=== PATIENT | female | born 1960 | race Caucasian/White ===

== ENCOUNTER → 2017-04-23 | Outpatient (CLI) | payer BC, OTHER ==
--- NOTE | 2017-04-24 07:55 | XCELERA REPORT ---
[address] [address] Lower Extremity Venous Evaluation Name: MARAL NICOLE Age: 56 yrs Gender: Female : 1960 Patient Status: Outpatient Patient Location: Study Date: 04/23/2017 01:21 PM Procedure: Color flow and duplex imaging of the veins of the right lower extremity as well as the left Common Femoral vein. Reason For Study: RLE PAIN Ordering Physician: SKYE VELEZ Performed By: Amberly Grimes Right Sided Venous Evaluation Normal vessel filling wall to wall, compression and augmentation as well as Colour flow down to the infrageniculate veins. Left Sided Venous Evaluation The left common femoral vein is fully compressible. Spontaneous and phasic flow is present in the left common femoral vein. Interpretation Summary No duplex evidence of DVT or obstruction in the right lower extremity nor in the left Common Femoral vein. : SKYE VELEZ > Killian Breaux
== END ==
LOC: SP 13:19
PROVIDERS: ATTEND Physician Assistant
DX: M79.661 Pain in right lower leg (principal); R60.9 Edema, unspecified
CPT/HCPCS: 93971

== ENCOUNTER 2019-06-29 22:22 | Emergency (ER) | payer SELFPAY ==
[2019-06-29] MEDS ORDERED: ACETAMINOPHEN 325 MG TABLET PO ONE (23:31)
[2019-06-29 23:59] LABS: A TYPE INFLUENZA AG NEGATIVE (NEGATIVE); B INFLUENZA AG NEGATIVE (NEGATIVE)
--- NOTE | 2019-06-30 00:10 | RADIOLOGY REPORT (SQ) ---
EXAM: XR Chest, 1 View EXAM DATE/TIME: 06/29/2019 11:53 PM CLINICAL HISTORY: The patient is 59 years old and is Female; cough, fever TECHNIQUE: Frontal view of the chest. COMPARISON: No relevant prior studies available. FINDINGS: LUNGS: Unremarkable. No consolidation. PLEURAL SPACE: Unremarkable. No pneumothorax. HEART: No significant enlargement of the cardiac silhouette. MEDIASTINUM: Unremarkable. BONES/JOINTS: No acute osseous findings. IMPRESSION: No acute findings visualized in the chest.
[2019-06-30 07:06] VITALS: BP 116/72
--- NOTE | 2019-06-30 11:05 | ER Document Report ---
Entered by DANIEL CANTU SCRIBE 06/30/19 0647 Acting as scribe for:MICHAEL OSMAN DO ED General - General Chief Complaint: Flu Symptoms Stated Complaint: FEVER,CHILLS,BODY ACHE Time Seen by Provider: 06/30/19 06:00 Primary Care Provider: CELINA WASHINGTON MD [Primary Care Provider] - Follow up as needed Mode of Arrival: Ambulatory Information source: Patient Notes: This 59 year old female patient presents to the emergency department today with complaints of fevers for the last two nights with associated nasal congestion, headaches, cough, and body aches. Patient states that many of her coworkers have the flu and she thinks she may have it too. TRAVEL OUTSIDE OF THE [place] IN LAST 30 DAYS: No - Related Data Allergies/Adverse Reactions: latex Allergy (Verified 06/29/19 23:24) Past Medical History - General Information source: Patient - Social History Smoking Status: Never Smoker Frequency of alcohol use: None Drug Abuse: None Lives with: Family Family History: None Patient has suicidal ideation: No Patient has homicidal ideation: No - Medical History Medical History: Negative Past Surgical History: Reports: Hx Cholecystectomy, Hx Orthopedic Surgery - RT KNEE Review of Systems - Review of Systems Constitutional: See HPI, Fever EENT: See HPI, Ear pain, Nose congestion Cardiovascular: No symptoms reported Respiratory: See HPI, Cough Gastrointestinal: No symptoms reported Genitourinary: No symptoms reported Female Genitourinary: No symptoms reported Musculoskeletal: See HPI, Muscle pain Skin: No symptoms reported Hematologic/Lymphatic: No symptoms reported Neurological/Psychological: See HPI, Headaches -: Yes All other systems reviewed and negative Physical Exam - Vital signs Vitals: Temp Pulse Resp BP Pulse Ox 99.8 F 114 H 20 143/80 H 91 L 06/29/19 22:34 06/29/19 22:34 06/29/19 22:34 06/29/19 22:34 06/29/19 22:34 - Notes Notes: Physical Exam: General: Alert, appears well. HEENT: Normocephalic. Atraumatic. PERRL. Extraocular movements intact. Oropharynx clear. Right serous effusion. Maxillary sinus tenderness to percussion. Neck: Supple. Non-tender. Respiratory: No respiratory distress. Clear and equal breath sounds bilaterally. Cardiovascular: Regular rate and rhythm. Abdominal: Normal Inspection. Non-tender. No distension. Normal Bowel Sounds. Back: No gross abnormalities. Extremities: Moves all four extremities. Upper extremities: Normal inspection. Normal ROM. Lower extremities: Normal inspection. No edema. Normal ROM. Neurological: Normal cognition. AAOx4. Normal speech. Psychological: Normal affect. Normal Mood. Skin: Warm. Dry. Normal color. Course - Vital Signs Vital signs: Temp Pulse Resp BP Pulse Ox 98.1 F 79 18 116/72 99 06/30/19 07:05 06/30/19 07:05 06/30/19 07:05 06/30/19 07:05 06/30/19 07:05 Discharge - Discharge Clinical Impression: Acute sinusitis Qualifiers: Sinusitis location: maxillary Recurrence: non-recurrent Qualified Code(s): J01.00 - Acute maxillary sinusitis, unspecified Condition: Good Disposition: HOME, SELF-CARE Instructions: Acetaminophen, Fever ([facility]), Sinusitis ([facility]) Additional Instructions: Rest, plenty of fluids, tylenol or ibuprofen for fever, aches. Please return here for any problems or any concerns. Prescriptions: Amoxicillin/Potassium Clav [Amox-Clav 875-125 mg Tablet] 1 each PO BID #20 tablet Forms: Return to Work Referrals: CELINA WASHINGTON MD [Primary Care Provider] - Follow up as needed I personally performed the services described in the documentation, reviewed and edited the documentation which was dictated to the scribe in my presence, and it accurately records my words and actions.
== END 2019-06-30 07:07 | disposition home or self-care (01) ==
LOC: ER 22:22
DX: J01.00 Acute maxillary sinusitis, unspecified (principal); R50.9 Fever, unspecified; M79.10 Myalgia, unspecified site; R09.81 Nasal congestion; R51 Headache; R05 Cough; H92.09 Otalgia, unspecified ear
CPT/HCPCS: 71045; 87804; 99283